=== PATIENT | female | born 1945 | race Caucasian/White ===

== ENCOUNTER 2022-12-03 16:37 | Inpatient (IN) | payer BC ==
[~2022-12-03] VITALS: Ht 157.5 cm; Wt 60.8 kg
[2022-12-03 16:45] VITALS: BP_SYST 179
--- NOTE | 2022-12-03 17:03 | NUR ---
Patient triaged and placed in waiting room. VSS and patient appears in no acute distress at this time. Accompanied by , awaiting available bed, and MD notified of need for MSE.
[2022-12-03 18:23] LABS: BILIRUBIN,URINE NEGATIVE (NEGATIVE); CLARITY/URINE CLOUDY (CLEAR); COLOR,URINE YELLOW (YELLOW); GLUCOSE,URINE NEGATIVE (NEGATIVE); KETONES,URINE NEGATIVE (NEGATIVE); LEUKOCYTE ESTERASE ,URINE NEGATIVE (NEGATIVE); NITRITE, URINE NEGATIVE (NEGATIVE); PROTEIN URINE 1+ (NEGATIVE); UROBILINOGEN,URINE 0.2 (0.2-1.0)
[2022-12-03 18:28] LABS: BLOOD, URINE TRACE (NEGATIVE)
[2022-12-03 18:38] LABS: BASOPHILS # (AUTO) 0.1 K/uL (0.0-0.2); EOSINOPHILS # (AUTO) 0.1 K/uL (0.0-0.4); HEMATOCRIT 44.1 % (36-48); MEAN CORPUSCULAR HGB CONC 36 % (32-36); MONOCYTES # (AUTO) 0.7 K/uL (0.0-1.0); WHITE BLOOD COUNT (AUTO) 10.5 K/uL (4.8-10.8)
[2022-12-03 18:44] LABS: BASOPHILS % (AUTO) 0.5 % (0.0-2.0); EOSINOPHILS % (AUTO) 0.8 % (0.0-4.0); LYMPHOCYTES # (AUTO) 3.3 K/uL (1.0-5.5); LYMPHOCYTES % (AUTO) 31.4 % (20.5-51.5); MEAN CORPUSCULAR HEMOGLOBIN 33 pg (27-31); MEAN CORPUSCULAR VOLUME 90 fL (79.0-98.0); MONOCYTES % (AUTO) 6.9 % (1.7-9.3); NEUTROPHILS # (AUTO) 6.3 K/uL (1.8-7.7); NEUTROPHILS % (AUTO) 60.4 % (40.0-70.0); PLATELET COUNT (AUTO) 261 K/uL (130-430); RED CELL DISTRIBUTION WIDTH 13.3 % (9.0-15.0)
[2022-12-03 18:48] LABS: ANION GAP 8 (5-15); CALCIUM 9.6 mg/dL (8.4-11.0); CHLORIDE 103 mmol/L (98-107); CREATININE 0.92 mg/dL (0.55-1.30); GLUCOSE 110 mg/dL (70-99); UREA NITROGEN, BLOOD 14 mg/dL (8-21)
[2022-12-03 18:54] LABS: BACTERIA,URINE MODERATE /HPF (None Seen); RBC,URINE 0-3 /HPF (0-3); WBC,URINE 0-3 /HPF (0-3)
[2022-12-03 18:54] LABS: ALANINE AMINOTRANSFERASE 16 U/L (12-78); ALBUMIN 3.9 g/dL (3.4-4.8); ASPARTATE AMINOTRANSFERASE 18 U/L (10-37); TOTAL BILIRUBIN 0.5 mg/dL (0.0-1.0)
--- NOTE | 2022-12-03 20:23 | NUR ---
Report given to Katy JOSUE
--- NOTE | 2022-12-03 20:23 | NUR ---
Placed in room 04 . Placed on labor relations worker, blood pressure machine and pulse oximeter. To gown for exam. Side rails up.
--- NOTE | 2022-12-03 20:30 | NUR ---
# 22 gauge angiocath placed to RAC. Use of asceptic technique. Opsite placed over site. Blood return noted. Blood for lab drawn from site. Flushed with 10 cc of normal saline. No evidence of infiltration noted. Patient tolerated well.
[2022-12-03] MEDS ORDERED: NITROGLYCERIN 0.4 MG TAB.SUBL SL ONE (20:45)
[2022-12-03] MEDS ORDERED: ASPIRIN 325 MG TABLET PO ONE (20:45)
--- NOTE | 2022-12-03 21:00 | NUR ---
PT BIB FROM HOME WITH C/O CHEST PAIN X 2 DAYS WITH SOB. PT REPORTS HER SOB IS WORSE DURING ACTIVITY. PT DENIES N/V/D, DIZZINESS AND HEADACHE. PT 96% ON ROOM AIR. AT BEDSIDE.
[2022-12-03] MEDS ORDERED: DIAZ5TAB4 PO (22:27)
[2022-12-03] MEDS ORDERED: *HEPARIN PER PHARMACY XX ONE (22:30)
[2022-12-03] MEDS ORDERED: ONDANSETRON HCL 4 MG/2 ML VIAL IVP SCH (22:45)
[2022-12-03] MEDS ORDERED: MORPHINE 2 MG/ML INJ. SYRINGE IVP SCH (22:45)
--- NOTE | 2022-12-03 22:50 | NUR ---
Admit bed requested Patient will be admitted to care of Dr Dr Gupta.. Admitted to Tele unit. Diagnosis NON-STEMI Inpatient (Yes or No)Yes Observation (Yes or No) No Orientation concerns or request close to nursing station (Yes or No) Yes Covid Status , pending On vent or bipap N/A Isolation requirements N/A Needs a sitter n/a From Home (Yes or if No enter name of facility) Yes Requires Dialysis (Yes or No) No Med Rec Completed (Yes of No)
--- NOTE | 2022-12-03 23:00 | NUR ---
CALLED [facility] FOR HEPRIN DOSAGE. COULD NOT GET [facility] OF PHARMACY
--- NOTE | 2022-12-04 00:25 | NUR ---
HAD TO RESUBMIT ORDER FOR HEPRIN. PER PHARMACY HEPRIN ORDER NO LONGER ACTIVE.
[2022-12-04] MEDS ORDERED: *HEPARIN PER PHARMACY XX ONE ×2 (00:30→08:00)
--- NOTE | 2022-12-04 00:40 | NUR ---
Patient will be admitted to [facility]. Admitted to TELE unit. Will go to room 121B. Belongings list completed. Complete and up to date summary report printed. SBAR report to be given at bedside with opportunity for questions.
[2022-12-04] MEDS ORDERED: HEPARIN SODIUM, PORCINE 10,000 UNITS/ 10 ML VIAL MC ONE (01:00)
[2022-12-04] MEDS ORDERED: HEPARIN 25,000 UNITS/D5W 250mL PREMIX IV PRN (01:00)
[2022-12-04] MEDS ORDERED: HEPARIN SODIUM,PORCINE 5,000 UNITS/ML VIAL IVP PRN ×2 (01:00)
[2022-12-04 01:21] VITALS: BP_SYST 146
[2022-12-04 02:05] LABS: PROTHROMBIN TIME 10.1 SECS (9.5-12.5)
[2022-12-04] MEDS ORDERED: HEPARIN SODIUM, PORCINE 10,000 UNITS/ 10 ML VIAL IV ONE (03:45)
--- NOTE | 2022-12-04 05:06 | NUR ---
CONSULTATION PAGED/CALLED Reason for Consultation: NON STEMI Person Who was Notified: MIK Consulting Physician: KAVYA Computer Systems Designer Specialty: Ordering Physician: ABBEY
[2022-12-04] MEDS ORDERED: ACETAMINOPHEN 325 MG TABLET PO PRN ×2 (06:15→06:30)
[2022-12-04] MEDS ORDERED: ONDANSETRON HCL 4 MG/2 ML VIAL IVP PRN (06:15)
[2022-12-04] MEDS ORDERED: LORazepam 2 MG/ML VIAL IVP PRN (06:15)
[2022-12-04] MEDS ORDERED: MUPIROCIN 2% TOPICAL OINTMENT 22 GM NS PRN (06:15)
[2022-12-04] MEDS ORDERED: NALOXONE HCL 0.4 MG/ML AMP (NARCAN) IVP PRN ×4 (06:15→19:45)
[2022-12-04] MEDS ORDERED: DOCUSATE SODIUM 100 MG CAPSULE PO PRN (06:15)
[2022-12-04] MEDS ORDERED: POTASSIUM CHLORIDE 20 MEQ TAB.PRT.SR PO PRN (06:15)
[2022-12-04] MEDS ORDERED: MAGNESIUM SULFATE 50 ML IV PRN (06:15)
[2022-12-04] MEDS ORDERED: MORPHINE 2 MG/ML INJ. SYRINGE IVP PRN ×2 (06:15)
[2022-12-04 08:00] VITALS: BP_SYST 141
[2022-12-04] MEDS ORDERED: HEPARIN 25,000 UNITS/D5W 250ML 250 ML IV PRN (08:00)
--- NOTE | 2022-12-04 08:00 | NUR ---
Initial notes awake, confused, at bedside. Denies any chest pain or shortness of breath. ambulate with steady gait, stand by assist. On heparin drip at 850 units/hr.No bleeding noted. able to feed self. Safety precaution observed. Bed alarm on.
[2022-12-04] MEDS ORDERED: HEPARIN SODIUM,PORCINE 3000 UNITS/0.6 ML BOLUS IVP PRN (08:15)
[2022-12-04] MEDS ORDERED: HEPARIN 25,000 UNITS in 250 ML PREMIX IV PRN (08:15)
[2022-12-04] MEDS ORDERED: HEPARIN SODIUM,PORCINE 2000 UNITS/0.4 ML BOLUS IVP PRN (08:15)
[2022-12-04] MEDS: lisinopriL 5 MG TABLET PO SCH (08:47)
[2022-12-04] MEDS: ASPIRIN 81 MG TAB.CHEW PO SCH (08:48)
[2022-12-04] MEDS ORDERED: METOPROLOL SUCCINATE 25 MG TAB.SR.24H (TOPROL XL) PO SCH (09:00)
--- NOTE | 2022-12-04 10:13 | NUR ---
heparin- discontinue heparin as ordered.
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
[2022-12-04] MEDS: AZITHROMYCIN 500 MG in NS 250 ML IV SCH (12:33)
--- NOTE | 2022-12-04 13:01 | NUR ---
Notes- Eating lunch. no distress. Endorse care to Tiffani( gustabo) RN for continuity of care.
--- NOTE | 2022-12-04 13:10 | NUR ---
Received report from Maribell Banuelos RN, patient sitting upright eating lunch, denies any discomfort and pain.
[2022-12-04 13:29] VITALS: BP_SYST 109
[2022-12-04 17:17] VITALS: BP_SYST 99
[2022-12-04] MEDS ORDERED: HYDROcodone/ACETAMIN 5-325 MG TAB (NORCO/ VICODIN) PO PRN (19:00)
--- NOTE | 2022-12-04 19:40 | NUR ---
pt's family @ bedside requesting pain meds, on arrival to room , asked pt to rate pain on scale of 1-10 with 10 being the most severe, pt's interrupts and states that pt is too confused to tell what her pain is, explained to pt's that it was protocol to record the pt's pain scale and location of pain. Noticed PIV was pulled out and explained to patient and family that I would get a PRN oral med for nausea and pain. Got orders from Dr. Ngo, awaiting pharmacy's approval, cage shift manager RN aware of orders and situation.
--- NOTE | 2022-12-04 19:45 | NUR ---
RECEIVED REPORT BY MORNING NURSE, START OF SHIFT ROUNDS. PATIENT IS LYING IN BED, C/O PAIN AND N/V, GOT REPORT THAT ORDER WAS PLACE, GAVE BOTH MEDICATION, AND DAUGHTER IN ROOM WITH PATIENT, ENCOURAGE TO USE CALL LIGHT FOR ASSISTANCE.
[2022-12-04] MEDS: ONDANSETRON 4 MG ODT TAB PO PRN (19:50)
[2022-12-04] MEDS: HYDROcodone/ACETAMIN 5-325 MG TAB (NORCO/ VICODIN) PO PRN ×2 (19:58→20:39)
[2022-12-04 20:36] VITALS: BP_SYST 118
[2022-12-05 00:27] VITALS: BP_SYST 142
--- NOTE | 2022-12-05 06:27 | NUR ---
CLOSING Patient is sleeping comfortably in bed, no s/s of any pain nor discomfort, bed at lowest position for safety with bed alarm on, call light within reach. will endorse to morning nurse.
--- NOTE | 2022-12-05 07:25 | NUR ---
OPENING NOTE RECEIVED SBAR FROM NIGHT RN. PATIENT IN BED, RESPIRATIONS EVEN, NON LABORED, BED IN LOW AND LOCKED POSITION, CALL LIGHT WITHIN REACH. BED ALARM ON
[2022-12-05 08:00] VITALS: BP_SYST 152
[2022-12-05 08:20] LABS: BASOPHILS % (AUTO) 0.4 % (0.0-2.0); EOSINOPHILS # (AUTO) 0.1 K/uL (0.0-0.4); EOSINOPHILS % (AUTO) 0.8 % (0.0-4.0); HEMATOCRIT 45.6 % (36-48); HEMOGLOBIN 15.6 g/dL (12.0-16.0); LYMPHOCYTES # (AUTO) 3.9 K/uL (1.0-5.5); LYMPHOCYTES % (AUTO) 35.2 % (20.5-51.5); MEAN CORPUSCULAR HEMOGLOBIN 32 pg (27-31); MEAN CORPUSCULAR HGB CONC 34 % (32-36); MEAN CORPUSCULAR VOLUME 92 fL (79.0-98.0); MONOCYTES # (AUTO) 1.1 K/uL (0.0-1.0); MONOCYTES % (AUTO) 9.9 % (1.7-9.3); NEUTROPHILS % (AUTO) 53.7 % (40.0-70.0); PLATELET COUNT (AUTO) 267 K/uL (130-430); RED BLOOD CELL COUNT(AUTO) 4.95 MIL/uL (4.2-6.2); RED CELL DISTRIBUTION WIDTH 13.8 % (9.0-15.0); WHITE BLOOD COUNT (AUTO) 11.1 K/uL (4.8-10.8)
[2022-12-05] MEDS: lisinopriL 5 MG TABLET PO SCH (08:48)
[2022-12-05] MEDS: ASPIRIN 81 MG TAB.CHEW PO SCH (08:48)
[2022-12-05 09:01] LABS: ANION GAP 10 (5-15); CALCIUM 9.3 mg/dL (8.4-11.0); CHLORIDE 101 mmol/L (98-107); CREATININE 0.89 mg/dL (0.55-1.30); GLUCOSE 110 mg/dL (70-99); UREA NITROGEN, BLOOD 13 mg/dL (8-21)
[2022-12-05 09:17] LABS: CHOLESTEROL 260 mg/dL (<200); HDL CHOLESTEROL 59 mg/dL (>55); THYROID STIMULATING HORMONE 2.76 uIu/mL (0.34-4.82); TRIGLYCERIDES 72 mg/dL (30-150)
--- NOTE | 2022-12-05 10:10 | NUR ---
md DR HOFF BEDSIDE EXAMINING PATIENT
[2022-12-05] MEDS: AZITHROMYCIN 500 MG in NS 250 ML IV SCH (10:15)
--- NOTE | 2022-12-05 10:54 | NUR ---
MD DR CABRAL BEDSIDE EXAMINING PATIENT, SNF VS HOME WITH HOME HEALTH AND HOME PT.
[2022-12-05 11:47] VITALS: BP_SYST 124
--- NOTE | 2022-12-05 14:05 | NUR ---
CRITICAL INFORMED DR DEAL OF CRITICAL BUN 112 REPEAT BMP TOMORROW
[2022-12-05 17:00] VITALS: BP_SYST 128
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
[2022-12-05] MEDS: ONDANSETRON 4 MG ODT TAB PO PRN (19:12)
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
[2022-12-05 20:00] VITALS: BP_SYST 139
[2022-12-06 01:00] VITALS: BP_SYST 115
[2022-12-06 06:19] LABS: ANION GAP 10 (5-15); CALCIUM 9.4 mg/dL (8.4-11.0); CHLORIDE 100 mmol/L (98-107); CREATININE 0.87 mg/dL (0.55-1.30); GLUCOSE 123 mg/dL (70-99); UREA NITROGEN, BLOOD 12 mg/dL (8-21)
[2022-12-06 06:25] LABS: BASOPHILS # (AUTO) 0.1 K/uL (0.0-0.2); BASOPHILS % (AUTO) 0.8 % (0.0-2.0); EOSINOPHILS % (AUTO) 0.1 % (0.0-4.0); HEMATOCRIT 46.7 % (36-48); HEMOGLOBIN 16.1 g/dL (12.0-16.0); LYMPHOCYTES # (AUTO) 2.8 K/uL (1.0-5.5); LYMPHOCYTES % (AUTO) 23.9 % (20.5-51.5); MEAN CORPUSCULAR HEMOGLOBIN 32 pg (27-31); MEAN CORPUSCULAR HGB CONC 34 % (32-36); MEAN CORPUSCULAR VOLUME 92 fL (79.0-98.0); MONOCYTES # (AUTO) 0.9 K/uL (0.0-1.0); MONOCYTES % (AUTO) 7.4 % (1.7-9.3); NEUTROPHILS # (AUTO) 8.1 K/uL (1.8-7.7); NEUTROPHILS % (AUTO) 67.8 % (40.0-70.0); PLATELET COUNT (AUTO) 272 K/uL (130-430); RED BLOOD CELL COUNT(AUTO) 5.09 MIL/uL (4.2-6.2); RED CELL DISTRIBUTION WIDTH 13.5 % (9.0-15.0); WHITE BLOOD COUNT (AUTO) 11.9 K/uL (4.8-10.8)
[2022-12-06 07:57] VITALS: BP_SYST 127
[2022-12-06] MEDS: ASPIRIN 81 MG TAB.CHEW PO SCH (08:27)
[2022-12-06] MEDS: lisinopriL 5 MG TABLET PO SCH (08:27)
[2022-12-06] MEDS ORDERED: ATORVASTATIN 20 MG TABLET PO SCH (09:00)
[2022-12-06] MEDS ORDERED: DOCUSATE SODIUM 100 MG CAPSULE PO ONE (09:30)
[2022-12-06] MEDS ORDERED: MILK OF MAGNESIA 30 ML UDC PO PRN (09:30)
[2022-12-06] MEDS: AZITHROMYCIN 500 MG in NS 250 ML IV SCH (09:57)
[2022-12-06] MEDS ORDERED: METOPROLOL SUCCINATE 25 MG TAB.SR.24H (TOPROL XL) PO ONE (10:45)
[2022-12-06] MEDS ORDERED: ASA81 PO (11:11)
[2022-12-06] MEDS ORDERED: LIP20 PO (11:11)
[2022-12-06] MEDS ORDERED: ZIT250 PO (11:11)
[2022-12-06] MEDS ORDERED: METO25TA6 PO (11:16)
--- NOTE | 2022-12-06 11:39 | NUR ---
Spoke with regarding patient vomiting. New ordersnoted and carried out.
[2022-12-06] MEDS ORDERED: ONDANSETRON HCL 4 MG/2 ML VIAL ONE (11:41)
[2022-12-06 11:48] VITALS: BP_SYST 115
[2022-12-06 12:00] VITALS: BP_SYST 130
--- NOTE | 2022-12-06 12:18 | NUR ---
Patient ready for discharge. All paperwork and belongings given to patient. Vital signs stable. Respiration even and unlabored. Patient ambulatory with assist. Patient changed into regular clothes. No active distress noted. Patient taken via wheelchair to outside lobby where patient's brought car. Patient able to ambulate with assist to personal vehicle.
[2022-12-07] MEDS ORDERED: DOCUSATE SODIUM 100 MG CAPSULE PO SCH (09:00)
[2022-12-07] MEDS ORDERED: METOPROLOL SUCCINATE 25 MG TAB.SR.24H (TOPROL XL) PO SCH (09:00)
== END 2022-12-06 12:18 | disposition home or self-care (01) | DRG 282 ==
LOC: SED 16:37 → STU 22:36
PROVIDERS: ADMIT Family Medicine; ATTEND Family Medicine
DX: I21.4 Non-ST elevation (NSTEMI) myocardial infarction (principal); G30.9 Alzheimer's disease, unspecified; E78.2 Mixed hyperlipidemia; Z20.822 Contact with and (suspected) exposure to COVID-19; F02.80 Dementia in other diseases classified elsewhere, unspecified severity, without behavioral disturbance, psychotic disturbance, mood disturbance, and anxiety; K04.7 Periapical abscess without sinus; I34.1 Nonrheumatic mitral (valve) prolapse; Z90.49 Acquired absence of other specified parts of digestive tract; Z79.899 Other long term (current) drug therapy
CPT/HCPCS: 36415; 71045; 80048; 80053; 80061; 81000; 83735; 83880; 84443; 84484; 85025; 85610-TC; 85730-TC; 93005; 93306; 97116-GP; 97163-GP; 97530-GP; 99285; G0378; J0456; J1644; J2270; J2405; J7050; Q0162